=== PATIENT | female | born 1940 | race Caucasian/White ===

== ENCOUNTER 2019-02-08 18:45 | Inpatient (IN) | payer MEDICARE, MEDICAID ==
--- NOTE | 2019-02-08 19:31 | ED ---
Adult Trauma - HPI Summary HPI Summary: This patient is an 78 year old F brought to [facility] by EMS with a chief complaint of fall with unknown time of onset possibly last night 02/07/19. Symptoms aggravated by nothing. Symptoms alleviated by nothing. Per EMS, pt was found lying face down in hallway coming out of bathroom with her arms tucked underneath, pressure sores on her knees, incontinence, and open wounds on hands and her head. Per EMS, pt refused to come to hospital but was forced by daughter to come to ED due to inability to ambulate which pt reports was due to sitting for so long. Per EMS, pt denies SOB, CP. Per EMS, pt does not know how long she was on the floor because she slept for part of it. 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 Pt reports broke left arm and almost broke her left leg. Per EMS, police was sent for welfare check when pt was found. Pt reports her breathing is great. - History of Current Complaint Chief Complaint: EDFall Stated Complaint: INJURIES FROM FALL PER EMS Time Seen by Provider: 02/08/19 19:04 Hx Obtained From: Patient, EMS Mechanism of Injury: Fall Onset/Duration: Started Days Ago - 1, Still Present Current Severity: Moderate Pain Intensity: 8 Pain Scale Used: 0-10 Numeric Aggravating Factor(s): Nothing Alleviating Factor(s): Nothing Associated Signs & Symptoms: Positive: Other: - pressure sores on her knees, incontinence, broke left arm and almost broke her left leg, and open wounds on hands and her head; denies SOB, CP - Allergy/Home Medications Allergies/Adverse Reactions: Allergies Allergy/AdvReac Type Severity Reaction Status Date / Time Sulfa (Sulfonamide Allergy GI Upset Verified 02/08/19 23:14 Antibiotics) Home Medications: Home Medications LoraTADine TAB(NF) [Claritin 10 MG TAB(NF)] 10 mg PO DAILY 02/08/19 [History Confirmed 02/08/19] PMH/Surg Hx/FS Hx/Imm Hx Endocrine/Hematology History: Denies: Hx Diabetes Cardiovascular History: Reports: Hx Hypertension Sensory History: Reports: Hx Contacts or Glasses Opthamlomology History: Reports: Hx Contacts or Glasses - Surgical History Surgery Procedure, Year, and Place: none Infectious Disease History: No Infectious Disease History: Denies: Traveled Outside the [place] in Last 30 Days - Family History Known Family History: Positive: Cardiac Disease, Diabetes, Other - cancer - Social History Alcohol Use: None Hx Substance Use: No Substance Use Type: Reports: None Hx Tobacco Use: No Smoking Status (MU): Never Smoked Tobacco Review of Systems Negative: Chest Pain Negative: Shortness Of Breath Positive: incontinence Positive: Other - pressure sores on her knees, broke left arm and almost broke her left leg Positive: Other - open wounds on hands and her head All Other Systems Reviewed And Are Negative: Yes Physical Exam - Summary Physical Exam Summary: Constitutional: Well-developed, Well-nourished, Alert. (-) Distressed Skin: Neurovascularly intact distal to the injury HENT: edema on bridge of nose, periorbital edema and erythema bilaterally, abrasion on lateral side of face bilaterally, abrasion and erythema on chin, Face nontender with no step offs, no blood in oral mucosa, oral mucosa is moist Eyes: Conjunctiva normal Neck: Musculoskeletal ROM normal neck. (-) JVD, (-) Stridor, (-) Tracheal deviation Cardio: Rhythm regular, rate normal, Heart sounds normal; Intact distal pulses; The pedal pulses are 2+ and symmetric. Radial pulses are 2+ and symmetric. (-) Murmur Pulmonary/Chest wall: Effort normal. (-) Respiratory distress, (-) Wheezes, (-) Rales Abd: Soft, (-) tenderness, (-) Distension, (-) Guarding, (-) Rebound Musculoskeletal: no c-spine or spine tenderness, tenderness upon palpation to leg mid femur, pain with movement of the right leg at the hip, contusion over her left knee that is nontender, entire left leg is non-tender, Neurovascularly intact distal to the injury, Left leg is shortened compared to right but no pain or tenderness in the left hip or pain with movement of the leg and hip. Lymph: (-) Cervical adenopathy Neuro: no focal neurologic deficit with Cranial nerves II-XII are grossly intact Psych: Mood and affect Normal Triage Information Reviewed: Yes Vital Signs On Initial Exam: Initial Vitals Temp Pulse Resp BP Pulse Ox 97.0 F 82 16 0/0 94 02/08/19 18:56 02/08/19 18:56 02/08/19 18:56 02/08/19 18:56 02/08/19 18:56 Vital Signs Reviewed: Yes Procedures - Sedation Patient Received Moderate/Deep Sedation with Procedure: No Diagnostics - Vital Signs Vital Signs Temp Pulse Resp BP Pulse Ox 02/08/19 18:56 97.0 F 82 16 0/0 94 - Laboratory Result Diagrams: 02/09/19 01:28 02/09/19 01:28 Lab Statement: Any lab studies that have been ordered have been reviewed, and results considered in the medical decision making process. - Radiology Femur X-Ray Radiology Interpretation Completed By: ED Physician Summary of Radiographic Findings: Per ED Physician,. no acute process. Pending official report. Hand X-Ray Radiology Interpretation Completed By: ED Physician Summary of Radiographic Findings: Per ED Physician,. no acute process. Pending official report. Hip/Pelvis X-Ray Radiology Interpretation Completed By: ED Physician Summary of Radiographic Findings: Per ED Physician,. Right hip shows no acute process. Pelvis shows severe degenerate disease of the left hip vs fracture. Pending official report. Knee X-Ray Radiology Interpretation Completed By: ED Physician Summary of Radiographic Findings: Per ED Physician,. no acute process. Pending official report. Chest X-Ray Radiology Interpretation Completed By: ED Physician Summary of Radiographic Findings: Per ED Physician,. possible right basal infiltrate. Pending official report. - CT Maxillofacial CT CT Interpretation Completed By: Radiologist Summary of CT Findings: Per radiologist,. No acute facial fractures. ED physician has reviewed this imaging report. Brain CT CT Interpretation Completed By: Radiologist Summary of CT Findings: Per radiologist,. Large right parietal 6 cm calcified mass could represent a meningioma or low. grade intraparenchymal lesion. Further workup with MRI recommended. No acute intracranial hemorrhage. ED physician has reviewed this imaging report. - EKG 0 Cardiac Rate: NL - 92 BPM EKG Rhythm: Sinus Rhythm Summary of EKG Findings: EKG taken at 0 reveals normal sinus rhythm at 92 BPM with prolonged QT, T-waves are inverted from V2 through V6 consistent with wellens criteria, normal ND, normal QRS, normal axis, normal ST. - Additional Comments Diagnostic Additional Comments: Brain MRI and Cervical Spine CT has not yet been reported. Re-Evaluation - Re-Evaluation First Eval Re-Evaluation Time: 20:19 Second Eval Re-Evaluation Time: 22:12 Comment: Physician discusses admission with pt. Adult Trauma Course/Dx - Course Course Of Treatment: This patient is an 78 year old F brought to [facility] by EMS with a chief complaint of fall with unknown time of onset. Per EMS, pt was found on ground with her arms tucked underneath, pressure sores on her knees, incontinence, and open wounds on hands and her head. Per EMS, pt refused to come to hospital but was forced by daughter to come to ED due to inability to ambulate which pt reports was due to sitting for so long. Per EMS, pt denies SOB , CP. Pt reports broke left arm and almost broke her left leg. Physical Exam Findings reveals no abnormalities except for on bridge of nose, periorbital edema and erythema bilaterally, abrasion on lateral side of face bilaterally, abrasion and erythema on chin, Face nontender with no step offs, no blood in oral mucosa, oral mucosa is moist, no c-spine or spine tenderness, tenderness upon palpation to leg mid femur, pain with movement of the right leg at the hip , contusion over her left knee that is nontender, entire left leg is non-tender , Neurovascularly intact distal to the injury, abrasion on her right hand,. no focal neurologic deficit with Cranial nerves II-XII are grossly intact, Left leg is shortened compared to right but no pain or tenderness in the left hip or pain with movement of the leg and hip. Maxillofacial CT reveals No acute facial fractures. Brain CT reveals Large right parietal 6 cm calcified mass could represent a meningioma or low. grade intraparenchymal lesion. Further workup with MRI recommended. No acute intracranial hemorrhage. Femur X-Ray reveals no acute process. Hand X-Ray reveals no acute process. Hip/Pelvis X-Ray : Right hip shows no acute process. Pelvis shows severe degenerate disease of the left hip vs fracture. Knee X-Ray reveals no acute disease. Chest X-Ray reveals possible right basal infiltrate. EKG taken at 2040 reveals normal sinus rhythm at 92 BPM with prolonged QT, T-waves are inverted from V2 through V6 consistent with wellens criteria, normal ND, normal QRS, normal axis, normal ST. Brain MRI and Cervical Spine CT report not read at this time. Tests show no abnormalities except for WBC 23.5 H, RBC 5.28 H, Chloride 100 L, BUN 30 H, Bun/Creatinine Ratio 35.3 H, Glucose 122 H, Lactic Acid 3.2 H, AST 113 H, Total Creatine Kinase 2977 H, Troponin I 3.96 H. Urinalysis reveals no abnormalities except for Urine Protein 2+ (100 mg/dl) A, Urine Ketones 1+ A, Urine Blood 3+ A , Ur Leukocyte Esterase Trace A, Urine WBC 2+ (11-20/hpf) A, Urine RBC 2+ (6-10/ hpf) A, Ur Squamous Epith Cells Present A, Urine Bacteria 1+ A, Hyaline Casts Present A, Granular Casts Present A. Pt was given 15 ml Gadoteridol IV, 200 mls /hr piperacillin Sod/Tazobactam Sod 3.375 gm in Sodium Chloride, 1000 mls/hr saline. We discussed patient care with Dr. Flores, who recommends MRI and possible admission,. Dr. Perez, plaster die maker, who recommends no heparin at this time, and Dr. Wise, hospitalist, accepts patient for admission. Patient will be admitted with diagnosis of sepsis, brain mass, fall, multiple contusions , elevated troponin, and rhabdomyolysis. The patient is agreeable with this plan. - Diagnoses Provider Diagnoses: Sepsis, Brain mass, Fall, Multiple contusions, Elevated troponin, Rhabdomyolysis - Physician Notifications Discussed Care Of Patient With: Dia Flores Time Discussed With Above Provider: 20:47 Instructed by Provider To: Other - pt needs MRI, if any other symptoms then admission to hospital 0: Dr. Wise, hospitalist, accepts patient for admission. 2209: Dr. Perez, plaster die maker, no heparin at this time. Discharge ED - Sign-Out/Discharge Documenting (check all that apply): Patient Departure - admit - Discharge Plan Condition: Improved Disposition: ADMITTED TO [facility] - Billing Disposition and Condition Condition: IMPROVED Disposition: Admitted to [facility] - Attestation Statements Document Initiated by Scribe: Yes Documenting Scribe: Stacy Osman Provider For Whom Scribe is Documenting (Include Credential): Racquel Hernandez MD Scribe Attestation: Stacy Saravia, scribed for Racquel Barrios MD on 02/09/19 at 1027. Scribe Documentation Reviewed: Yes Provider Attestation: The documentation as recorded by the scribe, Stacy Osman accurately reflects the service I personally performed and the decisions made by me, Racquel Hernandez MD Status of Scribe Document: Viewed
[2019-02-08] MEDS ORDERED: Gadoteridol* (CONTRAST) 279.3 MG/ML 10 ML IV ONE (21:32)
[2019-02-08 21:34] LABS: Hematocrit 45 % (35-47); Hemoglobin 14.8 g/dL (12.0-16.0); Mean Corpuscular HGB Conc 33 g/dL (31-36); Mean Corpuscular Hemoglobin 28 pg (27-31); Mean Corpuscular Volume 85 fL (80-97); Mean Platelet Volume 8.3 fL (7.4-10.4); Platelet Count 209 10^3/uL (150-450); Red Blood Count 5.28 10^6 /uL (3.70-4.87); Red Cell Distribution Width 13 % (10-15); White Blood Count 23.5 10^3/uL (3.5-10.8)
[2019-02-08 21:40] LABS: INR 1.01 (0.82-1.09)
[2019-02-08 21:45] LABS: ALT 40 U/L (7-52); AST 113 U/L (13-39); Albumin 4.2 g/dL (3.2-5.2); Albumin/Globulin Ratio 1.4 (1-3); Alkaline Phosphatase 61 U/L (34-104); Anion Gap 11 mmol/L (2-11); BUN/Creatinine Ratio 35.3 (8-20); Blood Urea Nitrogen 30 mg/dL (6-24); CO2 Carbon Dioxide 29 mmol/L (22-32); Calcium 10.1 mg/dL (8.6-10.3); Chloride 100 mmol/L (101-111); EGFR African American 77.9 (>60); EGFR Non-African American 64.4 (>60); Globulin 2.9 g/dL (2-4); Glucose 122 mg/dL (70-100); Potassium 3.9 mmol/L (3.5-5.0); Sodium 140 mmol/L (135-145); Total Protein 7.1 g/dL (6.4-8.9)
[2019-02-08 21:49] LABS: Urine Appearance Cloudy; Urine Bacteria 1+ (Absent); Urine Bilirubin Negative (Negative); Urine Blood 3+ (Negative); Urine Color Yellow; Urine Glucose Negative (Negative); Urine Granular Casts Present (Absent); Urine Ketones 1+ (Negative); Urine Nitrite Negative (Negative); Urine Protein 2+(100 mg/dL) (Negative); Urine Red Blood Cell 2+(6-10/hpf) (Absent); Urine Specific Gravity 1.023 (1.010-1.030); Urine Squamous Epithelial Cell Present (Absent); Urine Urobilinogen Negative (Negative); Urine White Blood Cell 2+(11-20/hpf) (Absent)
[2019-02-08] MEDS ORDERED: NS 0.9% 1000 ML** 1,000 ML IV ONE ×3 (21:51→23:15)
[2019-02-08 21:52] LABS: Troponin I 3.96 ng/mL (<0.04)
[2019-02-08] MEDS ORDERED: Piperacillin/Tazobac ADVAN(*) 3.375 GM in NS 0.9% 100 ML* 100 ML IVPB ONE (21:52)
[2019-02-08] MEDS ORDERED: Vancomycin(*) 1,000 MG VIAL IVPB SCH (21:53)
[2019-02-08 21:54] LABS: Alcohol < 10 mg/dL (<10)
[2019-02-08] MEDS ORDERED: Vancomycin(*) 1,000 MG - ED ONCE IV ONE ×2 (22:00)
[2019-02-08 22:03] LABS: Creatine Kinase 2977 U/L (10-223)
[2019-02-08 22:30] LABS: ABS Lymphocytes 0.8 10^3/ul (1.0-4.8); ABS Monocytes 1.1 10^3/ul (0-0.8); ABS Neutrophils 21.6 10^3/ul (1.5-7.7); Lymphocyte % 3.2 %; Nucleated Red Blood Cells % 0.2
[2019-02-08] MEDS ORDERED: Azithromycin 500 mg/250 ml NS 500 MG/250 ML BAG IVPB ONE (22:37)
[2019-02-08] MEDS ORDERED: NS 0.9% 250 ML* 250 ML IV ONE (22:38)
--- NOTE | 2019-02-08 23:23 | HP ---
History of Present Illness - History of Present Illness Reason for Visit: fall History of Present Illness: 78 year old female with no known medical history was brought in by ambulance today after being found down. Pt normally calls her family every morning. When she didnt call today, family sent for police to check her home and found her on the floor. She does not recall exactly how long she has been on the floor. Per family, she posted a fb status yesterday evening and that was the last they have heard from her. 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 She said their symptoms are identical. She would experience severe headache with transient hemiplegia sometimes leading to a fall. Which is what happened last night. She fell forwards and hit her head on the floor. She has multiple bruises all over her body. She has no severe pain. She tried to get up on her own but couldnt. When EMT arrived and stood her up, it was reported that her ext was still limp and she couldnt hold herself. She diddnt want to come to the hospital but her family made her. So far, her work up shows significant leukocytosis, pos UA, possible aspiration PNA and a massive lesion in her brain. Lesion was further characterized as a meningioma and neurosurgery was called, nothing to do overnight. She also had significant bump in her troponin, cardiology was called, only trend the troponins for now. Right now patient says she feels fine, just tired. She is very engaging, non- toxic appearing. - Past Medical History CLOTHING CONSULTANT: Migraine Review of Systems - Measurements Intake and Output: Intake and Output Last 24 Hours 02/06/19 02/07/19 02/08/19 02/09/19 06:59 06:59 06:59 06:59 Weight 165 lb - Review of Systems Constitutional Symptoms: Positive: Fatigue, Unexplained Falls Dermatology: Positive: Other - bruises on face, knees, hands. HEENT: Positive: Normal Eyes: Positive: Normal Thyroid: Positive: Normal Pulmonary: Positive: Normal Cardiology: Positive: Normal Gastroenterology: Positive: Normal Musculoskeletal: Positive: Other - right knee pain Endocrinology: Positive: Normal Neurology: Positive: Migraines Psychiatry: Positive: Normal Objective Active Medications: Vancomycin HCl 1,000 mg/ (Sodium Chloride) 250 mls @ 166.667 mls/hr IV ED ONCE ONE Stop: 02/08/19 23:29 Last Admin: 02/08/19 23:11 Dose: 166.667 mls/hr Azithromycin (Zithromax 500 Mg/250 Ml) 500 mg in 250 mls @ 250 mls/hr IVPB ONCE ONE Stop: 02/08/19 23:36 Sodium Chloride (Ns 0.9% 1000 Ml) 1,000 mls @ 1,000 mls/hr IV ED ONCE ONE Stop: 02/08/19 23:37 Last Admin: 02/08/19 23:13 Dose: 1,000 mls/hr Sodium Chloride (Ns 0.9% 1000 Ml) 1,000 mls @ 125 mls/hr IV ONCE ONE Stop: 02/09/19 07:14 Vital Signs - 8 hr 02/08/19 02/08/19 02/08/19 18:56 19:09 22:07 Temperature 97.0 F Pulse Rate 82 99 84 Respiratory 16 Rate Blood Pressure 0/0 (mmHg) O2 Sat by Pulse 94 93 91 Oximetry 02/08/19 02/08/19 23:00 23:01 Temperature 99.1 F Pulse Rate 88 Respiratory Rate Blood Pressure (mmHg) O2 Sat by Pulse 93 Oximetry Eyes: PERRLA Ears/Nose/Mouth/Throat: Clear Oropharnyx, Mucous Membranes Moist Neck: NL Appearance and Movements; NL JVP, Trachea Midline, No Thyroid Enlargement, Masses Respiratory: Symmetrical Chest Expansion and Respiratory Effort, Clear to Auscultation, Clear to Percussion, Clear to Palpation Cardiovascular: NL Sounds; No Murmurs; No JVD Abdominal: NL Sounds; No Tenderness; No Distention Lymphatic: No Cervical Adenopathy Extremities: No Edema Neurological: Alert and Oriented x 3, NL Sensation, NL Muscle Strength and Tone - except for chronic weakness in left arm Result Diagrams: 02/08/19 21:15 02/08/19 21:15 Assess/Plan/Problems-Billing Assessment: - Patient Problems (1) Fall Current Visit: Yes Status: Acute Comment: CT head shows a mass. She is not in a lot pain so only a CT neck was done and a few XRs, so far no fractures. she said she has had prior incidences of mechanical fall following the migraine. And Her symptoms do sound like hemiplegic migraine and her daughter was formally diagnosed, so it may be familial Given her multiple falls, i thinks she needs neurology to look into this. MRI did show a mass which neurosurgery will be following. If this is familial hemiplegic migraine, she could be having seizures with them? PT/OT (2) Meningioma Current Visit: Yes Status: Acute Code(s): D32.9 - BENIGN NEOPLASM OF MENINGES, UNSPECIFIED SNOMED Code(s): 107772454 Comment: incidental large mass on imaging with midline shift neurosurgery was called, nothing to do overnight. (3) Elevated troponin Current Visit: Yes Status: Acute Code(s): R79.89 - OTHER SPECIFIED ABNORMAL FINDINGS OF BLOOD CHEMISTRY SNOMED Code(s): 129130148 Comment: Troponins elevated. No chest pain. EKG with nonspeficic abnormalities Ed spoke with cardiology. Just trend troponins for now Trops Q6H No family hx of heart disease. (4) Sepsis Current Visit: Yes Status: Acute Comment: Found down. She said she had a hemiplegic migraine episode which led to her fall but she was too weak to get up , maybe that is related to an infection UA is pos. WBC is significantly elevated and LA is high blood cultures, broad spectrum abx, fluids trend LA (5) Migraine Current Visit: Yes Status: Acute Code(s): G43.909 - MIGRAINE, UNSP, NOT INTRACTABLE, WITHOUT STATUS MIGRAINOSUS SNOMED Code(s): 95694073 Comment: not formally diagnosed, though it does sound familial now that an incidental massive lesion was found in her brain, primary team to consider consulting neurology (6) DVT prophylaxis Current Visit: Yes Status: Acute Code(s): Z29.9 - ENCOUNTER FOR PROPHYLACTIC MEASURES, UNSPECIFIED SNOMED Code(s): 822447998 (7) Full code status Current Visit: Yes Status: Acute Code(s): Z78.9 - OTHER SPECIFIED HEALTH STATUS SNOMED Code(s): 289447267
[2019-02-08] MEDS ORDERED: Zosyn per Pharmacy* NOTE FOLLOW UP SCH (23:45)
[2019-02-09 01:34] LABS: ABS Basophils 0.1 10^3/ul (0-0.2); ABS Lymphocytes 0.7 10^3/ul (1.0-4.8); ABS Monocytes 0.6 10^3/ul (0-0.8); ABS Neutrophils 18.6 10^3/ul (1.5-7.7); Hematocrit 41 % (35-47); Hemoglobin 13.7 g/dL (12.0-16.0); Lymphocyte % 3.4 %; Mean Corpuscular HGB Conc 33 g/dL (31-36); Mean Corpuscular Hemoglobin 28 pg (27-31); Mean Corpuscular Volume 85 fL (80-97); Mean Platelet Volume 8.1 fL (7.4-10.4); Platelet Count 186 10^3/uL (150-450); Red Blood Count 4.88 10^6 /uL (3.70-4.87); Red Cell Distribution Width 13 % (10-15)
[2019-02-09 01:51] LABS: Anion Gap 8 mmol/L (2-11); BUN/Creatinine Ratio 35.4 (8-20); Blood Urea Nitrogen 28 mg/dL (6-24); CO2 Carbon Dioxide 27 mmol/L (22-32); Calcium 8.8 mg/dL (8.6-10.3); Chloride 105 mmol/L (101-111); Cholesterol 151 mg/dL; EGFR African American 84.7 (>60); Glucose 171 mg/dL (70-100); HDL Cholesterol 51.7 mg/dL; LDL Cholesterol 84 mg/dL; Potassium 3.4 mmol/L (3.5-5.0); Sodium 140 mmol/L (135-145); Triglycerides 79 mg/dL
[2019-02-09 01:56] LABS: Troponin I 4.43 ng/mL (<0.04)
[2019-02-09 02:27] LABS: TSH (Thyroid Stimulating Horm) 0.74 mcIU/mL (0.34-5.60)
[2019-02-09] MEDS ORDERED: ZOSYN 3.375 GM Q8H per EXTENDED INFUSION IVPB SCH ×2 (02:30)
[2019-02-09] MEDS ORDERED: fentaNYL* 50 MCG/ML 2 ML VIAL (100 MCG VIAL) IV ONE (03:51)
[2019-02-09 05:50] LABS: Troponin I 3.98 ng/mL (<0.04)
[2019-02-09] MEDS ORDERED: Piperacillin/Tazobac ADVAN(*) 3.375 GM in NS 0.9% 100 ML* 100 ML IVPB ONE (07:00)
--- NOTE | 2019-02-09 07:44 | PN ---
Subjective Date of Service: 02/09/19 Interval History: HD 2 on 02/09 78 Y/o F with history of Migraine presented after fall and was found lying down on floor with weakness. Found to have multiple bruises all over the body, leucocytosis, abnormal urinalysis, and mass on her right parietal brain possibly Meningioma. Vitals- stable Has left knee pain denies chest pain, dizziness and SOB says needs some good Objective Active Medications: Vancomycin HCl 750 mg/ Sodium (Chloride) 250 mls @ 166.667 mls/hr IVPB Q12H SHANTEL ; Protocol Piperacillin Sod/Tazobactam (Sod 3.375 gm/ Sodium Chloride) 100 mls @ 25 mls/ hr IVPB Q8H SHANTEL Last Admin: 02/09/19 03:27 Dose: 25 mls/hr Pharmacy Consult (Zosyn Per Pharmacy*) 1 note FOLLOW UP .ZOSYN PER PHARMACY [facility] Vital Signs - 8 hr 02/08/19 02/08/19 02/09/19 23:47 23:49 00:42 Temperature 99.1 F 97.8 F Pulse Rate 99 94 99 Respiratory 19 18 Rate Blood Pressure 144/78 144/78 140/61 (mmHg) O2 Sat by Pulse 94 94 94 Oximetry 02/09/19 03:47 Temperature 98.3 F Pulse Rate 89 Respiratory 18 Rate Blood Pressure 137/56 (mmHg) O2 Sat by Pulse 94 Oximetry Oxygen Devices in Use Now: None Exam: Patient is sitting on abed with no acute distress HEENT- Bruise on both cheeks Lungs- clear with no added sounds Heart- S1/S2 heard with holosystolic murmur on upper sternal border Abdomen: soft, nondistended and nontender. Normal BS heard Extremities: Bruises on both upper and lower extremities. Distal pulses palpable Neuro: Alert, oriented. Motor strength 5/5 on right extremity and 4/5 on left extremity. decreased sensation on left side. CN intact. Result Diagrams: 02/09/19 17:32 02/09/19 17:32 Assess/Plan/Problems-Billing Assessment: 78 Y/o F with history of Migraine presented after fall and was found lying down on floor with weakness. Found to have multiple bruises all over the body, leucocytosis, elevated creatinine kinase and lactic acid and mass on her right parafalcine brain possibly Meningioma adn NSTEMI. - Patient Problems (1) Fall Current Visit: Yes Status: Acute Comment: -Pt was falling more often for last 1 year; with more shuffling gait. - She tripped 2 days ago and fell down and hit her face and was on floor for 24 hours -She denies chest pain, palpitation and light headedness. - could be multifactorial- weakness from brain mass, syncope or just mechanical fall -No fracture on Xray -Ct/MRI shows right parafalcine brain mass with midline shift possibly meningioma -PT ordered (2) NSTEMI (non-ST elevated myocardial infarction) Current Visit: Yes Status: Acute Code(s): I21.4 - NON-ST ELEVATION (NSTEMI) MYOCARDIAL INFARCTION SNOMED Code(s): 96212077 Comment: -Asymptomatic -has elevated troponin with ECG chowing T inversion on anterior leads -Echo shows focal wall motion abnormalities with EF of 40-45% with severe . -Cardio following -received loading of plavix; denied aspirin -no statin because of elevated CK - Cardiac cath tomorrow or on thursday. -trend troponin (3) Sepsis Current Visit: Yes Status: Acute Comment: -meet SIRS criteria with elevted WBC and tachy; suspected source urine; although denies symptom -elevated lactic acid- pt doesnot look septic- no e/o hypoperfusion -Abnormal urinalysis -CXR shows mild infiltrates on right middle lobe. -received bolus IVF; now on maintenance fluid- her lactic acidodsis should be decreasing by now but is still high; suspect Type B lactic acidosis - On ceftriaxone and azithro which will cover both UTI and Pneumonia -pending urine culture and blood culture (4) Aortic valve stenosis Current Visit: Yes Status: Acute Code(s): I35.0 - NONRHEUMATIC AORTIC (VALVE ) STENOSIS SNOMED Code(s): 55805278 Comment: -severe AV stenosis -Echo done -will need TAVR or open surgery -Cardio following (5) Rhabdomyolysis Current Visit: Yes Status: Acute Code(s): M62.82 - RHABDOMYOLYSIS SNOMED Code(s): 546386175 Comment: - on floor for 24 hours -CK of 2977 -Creatinine is normal. -On IVF -we will recheck CK (6) Meningioma Current Visit: Yes Status: Acute Code(s): D32.9 - BENIGN NEOPLASM OF MENINGES, UNSPECIFIED SNOMED Code(s): 885264332 Comment: -CT/MRI shows mass on right parafalcine region with midline shift of 5 mm possibly meningioma - Neurosurgery consulted - we will see patient tomorrow. (7) DVT prophylaxis Current Visit: Yes Status: Acute Code(s): Z29.9 - ENCOUNTER FOR PROPHYLACTIC MEASURES, UNSPECIFIED SNOMED Code(s): 722836939 Comment: -On heparin (8) Full code status Current Visit: Yes Status: Acute Code(s): Z78.9 - OTHER SPECIFIED HEALTH STATUS SNOMED Code(s): 661711510 Status and Disposition: Inpatient Cardio and neurosurgery following Attending: Deepa Yu Attestation Documenting Resident: Natasha Ma Supervising Physician: Deepa Yu Attending/Supervising Physician Comment: Agree with resident note. Attending A&P 78F PMH HTN, migraines (w reported hemiplegia), who presented after being found down in setting of fall, found to have sepsis possibly 2/2 to PNA, rhabdomyolysis, L sided weakness and new R parietal meningioma with mass effect , severe and NSTEMI, persistent elevated lactic acid with associated AGMA. Multiple problems but overall well appearing today. Plan by problem: #Sepsis: s/p sepsis bundle, on CTX, Azithro for rpesumed pulm source, watch culture data --Elevated lactic acid unclear, no sign of shock or hypoperfusion, possibly tumor related, possibly type 2 elevated lactic acidosis. #NSTEMI: Hold heparin gtt in setting of new parietal tumor, cardiology following , plan for cath in prep for TAVR #Severe : Will need transfer when more stable and can be evaluated with risk/ benefits from CT Surgery in conjunction with new meningioma #Mengioma: Atypical? Neurosurgey following and to leave note 02/10, heart condition takes precedence in terms of operation #Rhabdo: Mild, traumatic, on IVF, trend CK and Cr to ensure heading in right direction #DVT PPX:Heparin Full Code Attestation: This service has been performed in part by a resident under the direction of a teaching physician.I, Deepa Yu, performed the service, or was physically present during the critical, or greenberg portions of the service, furnished by the resident. I participated in the management of the patient.
[2019-02-09] MEDS ORDERED: Vancomycin per Pharmacy* NOTE FOLLOW UP PRN (08:06)
[2019-02-09] MEDS ORDERED: Heparin VIAL(*) 5000 UNITS/ML VIAL (FIVE THOUSAND) SUBCUT SCH (09:00)
[2019-02-09] MEDS ORDERED: NS 0.9% 1000 ML** 1,000 ML IV SCH (09:45)
--- NOTE | 2019-02-09 10:27 | CONS ---
CONSULTATION REPORT: DATE OF CONSULT: 02/09/19 ATTENDING PHYSICIAN: Dr. Shayy Yusuf, Cardiology* (dictated by Angelika Chavarria NP). REASON FOR CONSULTATION: Troponin elevation. PRIMARY PHYSICIAN: None. HISTORY OF PRESENT ILLNESS: The patient states she has not been a primary physician since 2002. At that time, she was seen by Raf Thornton. The patient states that she does not have any diagnosed medical problems.. She has been in her usual state of health. For the past 2 years she has been noticing increased tremors, leg weakness resulting in mechanical falls. 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 She did not have a Life Alert on her nor did she have a phone. Apparently, she fell asleep in that position and was not found until nearly 24 hours later after her daughter called the police to do a safety check. She was brought into [facility] Emergency Room at 7:25 p.m. on 02/08/19 approximately 24 hours after the initial fall. The patient denies loss of consciousness. She apparently was found face down at that time. It appears that she was confused because she was referencing fracturing her leg. She underwent extensive evaluation while in the emergency department. Brain CT was abnormal with report of a large right parietal 6 cm calcified mass. She underwent a brain MRI, which revealed posterior right parafalcine meningioma measuring 5.3 x 4.5 x 5.2 cm with mild vasogenic edema midline shift to the left measuring 5 mm. Neurosurgery was consulted. Blood work revealed troponin elevation, troponin peaked on 02/09/19 at 4.3. Total CK was 2977. AST was 113. Her initial lactic acid was elevated at 3.2, white count 20. ECG revealed sinus rhythm rate 92 with anterolateral T-wave depression. Unfortunately, I do not have an ECG to compare to given patient has not followed up with her primary care physician since 2002. She was admitted to [address] [place] [address]. Decision was made to trend isoenzymes, which again have peaked. She denies ever experiencing chest pain, syncope, dizziness or palpitations. She states otherwise she has been in her usual state of health. Last ischemic evaluation, none. Echocardiogram pending. PAST MEDICAL HISTORY: 1. Reported hypertension in the distant past. 2. Osteoarthritis. 3. Aortic valve murmur on exam. Echo pending PAST SURGICAL HISTORY: Includes multiple D and C's. ALLERGIES: Includes: 1. PORK, which causes migraine. 2. SULFA, flank pain. 3. TOMATOES, migraine. 4. SOYA, migraine. 5. ASPIRIN, dizziness and tingling. FAMILY HISTORY: Her mother at 58 due to complications from a myocardial infarction. Father at 75 due to complications from stomach cancer. Her sister Renae at age 58 due to myocardial infarction. SOCIAL HISTORY: The patient lives at home alone. Her daughter Keren Carrillo is healthcare proxy. Denies ever using tobacco products. Denies drinking or illicit drug use. She is listed as a full code. REVIEW OF SYSTEMS: All systems have been reviewed and otherwise negative except as mentioned in the HPI. PHYSICAL EXAM: Vital signs: Temperature 98.2, pulse 89, respirations 18, oxygenation 96% on room air, blood pressure 121/59. General: The patient is sitting upright in bed with daughter Aura at the bedside. Pleasant, alert and oriented, appears in no apparent distress, cooperative with the examination. HEENT: The patient has abrasions noted on bilateral cheeks with slight ecchymosis noted near the periorbital region. Tongue is midline. Neck: Supple, trachea midline. No JVD. No carotid bruits. Cardiac: Normal S1, S2. Regular rate and rhythm. There is a grade 2/6 systolic aortic murmur. There is a grade 4/6 mitral valve murmur, no gallop or rub. Lungs: Auscultated posteriorly, no evidence of adventitious breath sounds. Respirations is nonlabored, rate at 20. /GI: Abdomen is nontender, normoactive bowel sounds x4. Extremities: No pedal edema, no clubbing, no cyanosis. Peripheral Vascular: 3+ brachial pulses palpated bilaterally and symmetrically, 2+ dorsalis pedis pulses palpated bilaterally and symmetrically. DIAGNOSTIC STUDIES/LAB DATA: White count is 20, hemoglobin 13.7, hematocrit 41 , platelets 186. Sodium 140, potassium 3.4, chloride 105, carbon dioxide 27, BUN 28, creatinine 0.79, troponin peaked at 4.43 on 02/09/19. Total CK was 2977 , AST elevated at 113, LDL 84. ECG reviewed from 02/09/19, sinus rhythm, rate 81 with T wave inversion noted in V2, V3, V4, V5 and lead I and aVL. Telemetry reviewed, sinus tachycardia, rate 80 to 110. Echocardiogram pending. Brain MRI as mentioned above. ASSESSMENT AND PLAN: 1. Non-ST elevation myocardial infarction. Troponin peaked at 4.43 with presumed new anterolateral T-wave inversion. Unfortunately, I do not have an ECG to compare to. She has not seen a primary physician since 2002. Risk factors include positive family history, age, and reported history of hypertension. She denies ever experiencing chest pain. Troponin is trending down. Await echocardiogram to rule out focal wall motion abnormality. She reports sensitivity to ASPIRIN which apparently caused dizziness and tingling. Decision was made not to initiate IV heparin due to abnormal brain MRI. We will follow closely. Possibly related to rhabdomyolysis. 2. Rhabdomyolysis. The patient had a mechanical fall reported at 6:30 p.m. on 02/07/19. According to the patient and her daughter Aura whom I spoke with, she was lying on the ground face down for approximately 24 hours before being found. She has notable facial abrasions and abrasion on her knees. CK was elevated at 2977, AST 113. She has been receiving IV fluids. We would not initiate statin therapy at this time. 3. Abnormal brain MRI with 5.3 x 4.5 x 5.2 cm posterior right parafalcine meningioma with midline shift to left measuring 5 mm, deferred to primary team and Neurosurgery. 4. Abnormal cardiovascular exam. The patient has positive aortic stenotic murmur and mitral valve murmur, we will await echocardiogram and follow closely. 5. Disposition, pending course. Dr. Shayy Yusuf has seen and examined the patient who agrees with the above assessment and plan. Thank you for this kind consultation. If you have any future questions or concerns, please do not hesitate to contact our practice. ANGELIKA CHAVARRIA NP [id number]/[facility] #: [id number]/[facility] #: [id number] [facility] CENTERScarlett
[2019-02-09] MEDS: cefTRIAXone(*) 1 GM in NS 0.9% 50 ML* 50 ML IVPB SCH (10:39)
[2019-02-09] MEDS: Azithromycin IV(*) 250 MG in NS 0.9% 250 ML* 250 ML IVPB SCH (10:40)
[2019-02-09] MEDS: Aspirin TAB* 325 MG PO ONE ×2 (10:40→11:07)
[2019-02-09] MEDS ORDERED: Vancomycin(*) 1,000 MG in NS 0.9% 250 ML* 250 ML IVPB SCH (11:00)
[2019-02-09 11:12] LABS: Troponin I 2.42 ng/mL (<0.04)
--- NOTE | 2019-02-09 11:16 | CONS ---
CARDIOLOGY CONSULTATION NOTE: ADDENDUM: ATTENDING PHYSICIAN: Shayy Yusuf MD. PHYSICAL EXAM: Vital signs: Temperature 98.2, pulse 89, respirations 18, oxygenation 96% on room ai r, blood pressure 121/59. General: The patient is sitting upright in bed with daughter Aura at th e bedside. Pleasant, alert and oriented, appears in no apparent distress, cooperative with the [facility]. HEENT: The patient has abrasions noted on bilateral cheeks with slight ecchymosis noted near the periorbital region. Tongue is midline. Neck: Supple, trachea midline. No JVD. No carotid br uits. Cardiac: Normal S1, S2. Regular rate and rhythm. There is a grade 2/6 systolic aortic murmu r. There is a grade 4/6 mitral valve murmur, no gallop or rub. Lungs: Auscultated posteriorly, no evidence of adventitious breath sounds. Respirations is nonlabored, rate at 20. /GI: Abdomen is n ontender, normoactive bowel sounds x4. Extremities: No pedal edema, no clubbing, no cyanosis. Raina pheral Vascular: 3+ brachial pulses palpated bilaterally and symmetrically, 2+ dorsalis pedis pulses palpated bilaterally and symmetrically. DIAGNOSTIC STUDIES/LAB DATA: White count is 20, hemoglobin 13.7, hematocrit 41, platelets 186. Sodi um 140, potassium 3.4, chloride 105, carbon dioxide 27, BUN 28, creatinine 0.79, troponin peaked at 4 .43 on 02/09/19. Total CK was 2977, AST elevated at 113, LDL 84. ECG reviewed from 02/09/19, sinus rhythm, rate 81 with T wave inversion noted in V2, V3, V4, V5 and l ead I and aVL. Telemetry reviewed, sinus tachycardia, rate 80 to 110. Echocardiogram pending. Brain MRI as mentioned above. ASSESSMENT AND PLAN: 1. Non-ST elevation myocardial infarction. Troponin peaked at 4.43 with presumed new anterolateral T-wave inversion. Unfortunately, I do not have an ECG to compare to. She has not seen a primary y sician since 2002. Risk factors include positive family history, age, and reported history of hypert ension. She denies ever experiencing chest pain. Troponin is trending down. Await echocardiogram t o rule out focal wall motion abnormality. She reports sensitivity to ASPIRIN which apparently caused dizziness and tingling. Decision was made not to initiate IV heparin due to abnormal brain MRI. We will follow closely. Possibly related to rhabdomyolysis. 2. Rhabdomyolysis. The patient had a mechanical fall reported at 6:30 p.m. on 02/07/19. According to the patient and her daughter Aura whom I spoke with, she was lying on the ground face down for a pproximately 24 hours before being found. She has notable facial abrasions and abrasion on her knees. CK was elevated at 2977, AST 113. She has been receiving IV fluids. We would not initiate statin therapy at this time. 3. Abnormal brain MRI with 5.3 x 4.5 x 5.2 cm posterior right parafalcine meningioma with midline sh ift to left measuring 5 mm, deferred to primary team and Neurosurgery. 4. Abnormal cardiovascular exam. The patient has positive aortic stenotic murmur and mitral valve m urmur, we will await echocardiogram and follow closely. 5. Disposition, pending course. Dr. Shayy Yusuf has seen and examined the patient who agrees with the above assessment and plan. Thank you for this kind consultation. If you have any future questions or concerns, please do not he sitate to contact our practice. RAQUEL CORTES NP [id number]/[facility] #: [id number]
--- NOTE | 2019-02-09 11:38 | ECHO ---
*[facility]* [place] [address] Fax #: [phone] Transthoracic Echocardiogram Patient: Cami Noriega : 1940 Study Date: 02/09/2019 Age: 78 Gender: F HR: 94 bpm Height: 65 in /165.1 cm BSA: 1.78 m^2 Weight: 155.7 lb /70.8 kg BMI: 26 kg/m^2 *Systems Support Officer: * Evita Ortega RDCS RN *Referring Physician: * Angelika Chavarria *Reading Physician: * Shayy Yusuf MD Indications: Abnormal EKG. History: Migraines. Brain mass found on CT. Conclusions Summary: - Left ventricle: The cavity size is normal. Wall thickness is mildly to moderately increased. Systolic function is mildly to moderately reduced. The estimated ejection fraction is 40-45% with focal wall motion abnormalities, see text. Doppler parameters are consistent with elevated ventricular end-diastolic filling pressure. - Right ventricle: Systolic function is normal. - Mitral valve: There is mild to moderate regurgitation, directed posteriorly and toward the free wall. - Aortic valve: The findings are consistent with severe stenosis. The peak systolic velocity is 3.2 m/sec. The mean systolic gradient is 30.0 mm Hg. The LVOT to aortic valve VTI ratio is 0.22. The valve area by the velocity-time integral method is 0.69 cm^2. The valve area by the peak velocity method is 0.78 cm^2. - Tricuspid valve: There is mild regurgitation. - Aorta: The ascending aorta internal dimension in the A-P direction, maximal systolic dimension is 3.5 cm. - Ascending aorta: The ascending aorta is mildly dilated. - Pulmonary arteries: Systolic pressure is moderately increased, estimated to be 46 mm Hg. - No prior echocardiogram to compare. Study data: Transthoracic echocardiogram. Procedure: Transthoracic echocardiography was performed. Image quality was fair. The patient refused the use of Definity for image enhancement. Complete 2D, spectral Doppler, and color flow Doppler. Location: Bedside. Patient status: Inpatient. Patient room number: 438. Rhythm: Normal sinus rhythm with PAC's. Findings Left ventricle: The cavity size is normal. Wall thickness is mildly to moderately increased. Systolic function is mildly to moderately reduced. The estimated ejection fraction is 40-45%. Regional wall motion abnormalities: Hypokinesis noted mid lateral and posterior wright, anterior wall appears hypokinetic. Best systolic function seen in the septum, base of the lateral wall, very apex. Doppler parameters are consistent with abnormal left ventricular relaxation (grade 1 diastolic dysfunction). Doppler parameters are consistent with elevated ventricular end-diastolic filling pressure. Right ventricle: The cavity size is normal. Wall thickness is mildly increased at 0.7 cm. Systolic function is normal. Left atrium: The atrium is mildly to moderately dilated. Right atrium: The atrium is normal in size. Mitral valve: The Mitral valve annulus appears calcified. The leaflets are mildly thickened. There is no evidence of stenosis. There is mild to moderate regurgitation, directed posteriorly and toward the free wall. Aortic valve: The valve is trileaflet. The leaflets are moderately thickened with decreased excursion. The findings are consistent with severe stenosis. There is no significant regurgitation. Tricuspid valve: The valve is structurally normal. There is no evidence of stenosis. There is mild regurgitation. Pulmonic valve: The valve is structurally normal. There is no evidence of stenosis. There is physiologic regurgitation. Aorta: Aortic root: The aortic root is not dilated. Ascending aorta: The ascending aorta is mildly dilated. Aortic arch: The aortic arch is not dilated. Pericardium: There is no pericardial effusion. Pulmonary arteries: The main pulmonary artery is normal-sized. Systolic pressure is moderately increased, estimated to be 46 mm Hg. Systemic veins: Inferior vena cava: The vessel is normal in size. There is (< 50%) respiratory change in the IVC dimension. Measurements Left ventricle Value Ref Aortic valve Value Ref GALE, LAX 4.7 cm 3.8 - 5.2 Vaughn diam, ED 2.3 cm ----- ESD, LAX (H) 3.7 cm 2.2 - 3.5 Peak v, S 3.2 m/sec ----- FS, LAX (L) 21 % 27 - 45 VTI, S 70.4 cm ----- PW, ED (H) 1.3 cm 0.6 - 0.9 Mean grad, S 30.0 mm Hg ----- IVS/PW, ED 1.06 Peak grad, S 42.0 mm Hg ----- E', lat vaughn, TDI (L) 4.4 cm/sec >=10.0 LVOT/AV, VTI ratio 0.22 --- -- E/e', lat vaughn, 20 DAVID, VTI 0.69 cm^2 ----- TDI DAVID, Vmax 0.78 cm^2 ----- E', med vaughn, TDI (L) 5.4 cm/sec >=7.0 E/e', med vaughn, 16 Mitral valve Value Ref TDI Peak E 0.88 m/sec ----- E', avg, TDI 4.9 cm/sec Peak A 0.88 m/sec ----- E/e', avg, TDI (H) 18 <=14 Decel time 229 ms --- -- Peak grad, D 3.1 mm Hg ----- LVOT Value Ref Peak E/A ratio 1 ----- Diam, S 2.00 cm Area 3.1 cm^2 Pulmonic valve Value Ref Peak rosas, S 0.79 m/sec Peak v, S 0.78 m/sec ----- VTI, S 15.5 cm Peak grad, S 2.0 mm Hg ----- Mean grad, S 1 mm Hg SV 49 ml Tricuspid valve Value Ref SV/bsa 28 ml/m^2 TR peak v (H) 3.1 m/sec <=2.8 Peak RV-RA grad, S 38 mm Hg ----- Ventricular septum Value Ref Max TR rosas 3.1 m/sec ----- IVS, ED (H) 1.3 cm 0.6 - 0.9 Aortic root Value Ref Right ventricle Value Ref Root diam 3.1 cm <4.0 GALE, LAX 2.7 cm GALE minor ax, A4C (H) 3.6 cm 1.9 - 3.5 Ascending aorta Value Ref mid AAo AP diam, S 3.5 cm ----- Pressure, S 46 mm Hg Decending aorta Value Ref Left atrium Value Ref Edson peak rosas 0.37 m/sec ----- AP dim, ES (H) 4.40 cm 2.70 - 3.80 Pulmonary artery Value Ref ML dim, A4C 4.2 cm Pressure, S 46.0 mm Hg ----- SI dim, A4C 4.5 cm Vol/bsa, ES, 1-p 29 ml/m^2 11 - 40 Inferior vena cava Value Ref A4C Diam 1.7 cm ----- Vol/bsa, ES, A/L (H) 40 ml/m^2 16 - 34 Right atrium Value Ref ML dim, ES, A4C 3.6 cm 2.6 - 4.4 SI dim, ES, A4C 4.4 cm 3.4 - 5.3 Estimated RAP 8 mm Hg Legend: (L) and (H) adán values outside specified reference range. Prepared and electronically signed by Shayy Yusuf MD 02/09/2019 11:38
[2019-02-09] MEDS ORDERED: Clopidogrel TAB* 300 MG PO ONE (11:39)
[2019-02-09] MEDS: Acetaminophen TAB* 325 MG PO PRN ×2 (12:16→19:44)
[2019-02-09] MEDS: Heparin VIAL(*) 5000 UNITS/ML VIAL (FIVE THOUSAND) SUBCUT SCH ×2 (14:17→21:33)
--- NOTE | 2019-02-09 16:40 | PN ---
Cardiology Progress Note Date of Service: 02/09/19 - CC: s/p fall see full consult noted from Angelika Chavarria HEALTH AND SAFETY REPRESENTATIVE Pt reports mechanical fall. Echo shows wall motion changes, severe . 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 [employer] Trops elevated. Presumed meningioma seen on CT head, recent GOMEZ's. Vital Signs - 12 hr Temp Pulse Resp BP Pulse Ox 02/09/19 11:15 98.3 F 95 20 106/66 95 02/09/19 08:00 20 02/09/19 07:15 98.2 F 101 20 121/59 96 Clear lungs. Distant HS USB, late peaking 1-2/6 SM USB, very soft S2 Loud SM apex Bruising of face noted post fall. Good radial pulses. Laboratory Results - last 24 hr 02/08/19 02/08/19 02/08/19 21:05 21:15 21:15 WBC 23.5 H RBC 5.28 H Hgb 14.8 Hct 45 MCV 85 MCH 28 MCHC 33 RDW 13 Plt Count 209 MPV 8.3 Neut % (Auto) 91.9 Lymph % (Auto) 3.2 Gulf % (Auto) 4.7 Eos % (Auto) 0.0 Baso % (Auto) 0.2 Absolute Neuts (auto) 21.6 H Absolute Lymphs (auto) 0.8 L Absolute Monos (auto) 1.1 H Absolute Eos (auto) 0.0 Absolute Basos (auto) 0.0 Absolute Nucleated RBC 0.0 Nucleated RBC % 0.2 INR (Anticoag Therapy) 1.01 Sodium Potassium Chloride Carbon Dioxide Anion Gap BUN Creatinine Est GFR ( Amer) Est GFR (Non-Af Amer) BUN/Creatinine Ratio Glucose Lactic Acid Calcium Total Bilirubin AST ALT Alkaline Phosphatase Total Creatine Kinase Troponin I Total Protein Albumin Globulin Albumin/Globulin Ratio Triglycerides Cholesterol LDL Cholesterol HDL Cholesterol TSH Urine Color Yellow Urine Appearance Cloudy Urine pH 5.0 Ur Specific [place] 1.023 Urine Protein 2+(100 mg/dl) A Urine Ketones 1+ A Urine Blood 3+ A Urine Nitrate Negative Urine Bilirubin Negative Urine Urobilinogen Negative Ur Leukocyte Esterase Trace A Urine WBC (Auto) 2+(11-20/hpf) A Urine RBC (Auto) 2+(6-10/hpf) A Ur Squamous Epith Cells Present A Urine Bacteria 1+ A Hyaline Casts Present A Granular Casts Present A Urine Glucose Negative Serum Alcohol 02/08/19 02/08/19 02/09/19 21:15 21:15 01:28 WBC RBC Hgb Hct MCV MCH MCHC RDW Plt Count MPV Neut % (Auto) Lymph % (Auto) Gulf % (Auto) Eos % (Auto) Baso % (Auto) Absolute Neuts (auto) Absolute Lymphs (auto) Absolute Monos (auto) Absolute Eos (auto) Absolute Basos (auto) Absolute Nucleated RBC Nucleated RBC % INR (Anticoag Therapy) Sodium 140 140 Potassium 3.9 3.4 L Chloride 100 L 105 Carbon Dioxide 29 27 Anion Gap 11 8 BUN 30 H 28 H Creatinine 0.85 0.79 Est GFR ( Amer) 77.9 84.7 Est GFR (Non-Af Amer) 64.4 70.0 BUN/Creatinine Ratio 35.3 H 35.4 H Glucose 122 H 171 H Lactic Acid 3.2 H* Calcium 10.1 8.8 Total Bilirubin 0.80 AST 113 H ALT 40 Alkaline Phosphatase 61 Total Creatine Kinase 2977 H Troponin I 3.96 H* 4.43 H* Total Protein 7.1 Albumin 4.2 Globulin 2.9 Albumin/Globulin Ratio 1.4 Triglycerides 79 Cholesterol 151 LDL Cholesterol 84 HDL Cholesterol 51.7 TSH 0.74 Urine Color Urine Appearance Urine pH Ur Specific [place] Urine Protein Urine Ketones Urine Blood Urine Nitrate Urine Bilirubin Urine Urobilinogen Ur Leukocyte Esterase Urine WBC (Auto) Urine RBC (Auto) Ur Squamous Epith Cells Urine Bacteria Hyaline Casts Granular Casts Urine Glucose Serum Alcohol < 10 02/09/19 02/09/19 02/09/19 01:28 02:14 05:17 WBC 20.0 H RBC 4.88 H Hgb 13.7 Hct 41 MCV 85 MCH 28 MCHC 33 RDW 13 Plt Count 186 MPV 8.1 Neut % (Auto) 93.1 Lymph % (Auto) 3.4 Gulf % (Auto) 3.2 Eos % (Auto) 0.0 Baso % (Auto) 0.3 Absolute Neuts (auto) 18.6 H Absolute Lymphs (auto) 0.7 L Absolute Monos (auto) 0.6 Absolute Eos (auto) 0.0 Absolute Basos (auto) 0.1 Absolute Nucleated RBC 0.0 Nucleated RBC % 0.0 INR (Anticoag Therapy) Sodium Potassium Chloride Carbon Dioxide Anion Gap BUN Creatinine Est GFR ( Amer) Est GFR (Non-Af Amer) BUN/Creatinine Ratio Glucose Lactic Acid 1.7 Calcium Total Bilirubin AST ALT Alkaline Phosphatase Total Creatine Kinase Troponin I 3.98 H* Total Protein Albumin Globulin Albumin/Globulin Ratio Triglycerides Cholesterol LDL Cholesterol HDL Cholesterol TSH Urine Color Urine Appearance Urine pH Ur Specific [place] Urine Protein Urine Ketones Urine Blood Urine Nitrate Urine Bilirubin Urine Urobilinogen Ur Leukocyte Esterase Urine WBC (Auto) Urine RBC (Auto) Ur Squamous Epith Cells Urine Bacteria Hyaline Casts Granular Casts Urine Glucose Serum Alcohol 02/09/19 02/09/19 02/09/19 08:11 10:42 13:33 WBC RBC Hgb Hct MCV MCH MCHC RDW Plt Count MPV Neut % (Auto) Lymph % (Auto) Gulf % (Auto) Eos % (Auto) Baso % (Auto) Absolute Neuts (auto) Absolute Lymphs (auto) Absolute Monos (auto) Absolute Eos (auto) Absolute Basos (auto) Absolute Nucleated RBC Nucleated RBC % INR (Anticoag Therapy) Sodium Potassium Chloride Carbon Dioxide Anion Gap BUN Creatinine Est GFR ( Amer) Est GFR (Non-Af Amer) BUN/Creatinine Ratio Glucose Lactic Acid 3.5 H* 3.6 H* Calcium Total Bilirubin AST ALT Alkaline Phosphatase Total Creatine Kinase Troponin I 2.42 H* Total Protein Albumin Globulin Albumin/Globulin Ratio Triglycerides Cholesterol LDL Cholesterol HDL Cholesterol TSH Urine Color Urine Appearance Urine pH Ur Specific [place] Urine Protein Urine Ketones Urine Blood Urine Nitrate Urine Bilirubin Urine Urobilinogen Ur Leukocyte Esterase Urine WBC (Auto) Urine RBC (Auto) Ur Squamous Epith Cells Urine Bacteria Hyaline Casts Granular Casts Urine Glucose Serum Alcohol a/P 78 yo with fall, elevated troponins, abnormal ECG, severe . Additionally probable menigioma, head aches. For cardiac work up plan on cath in AM if CK/BUN/Cr all moving in the right direction. The patient is requesting [facility] for TAVR, I was unable to contact them today to discuss if ANITRA/CT scan could be done here, how to expedite referral, if stenting indicated their preference wrt antiplatelet agents/coordination of cardiac care.
[2019-02-09 17:45] LABS: ABS Basophils 0.1 10^3/ul (0-0.2); ABS Eosinophils 0.1 10^3/ul (0-0.6); ABS Lymphocytes 1.3 10^3/ul (1.0-4.8); ABS Neutrophils 17.8 10^3/ul (1.5-7.7); Eosinophil % 0.3 %; Hematocrit 39 % (35-47); Hemoglobin 13.2 g/dL (12.0-16.0); Lymphocyte % 6.3 %; Mean Corpuscular HGB Conc 34 g/dL (31-36); Mean Corpuscular Hemoglobin 29 pg (27-31); Mean Corpuscular Volume 85 fL (80-97); Mean Platelet Volume 8.3 fL (7.4-10.4); Platelet Count 173 10^3/uL (150-450); Red Blood Count 4.61 10^6 /uL (3.70-4.87); Red Cell Distribution Width 14 % (10-15); White Blood Count 20.2 10^3/uL (3.5-10.8)
[2019-02-09 18:01] LABS: BUN/Creatinine Ratio 35.4 (8-20); Calcium 8.3 mg/dL (8.6-10.3); EGFR African American 84.7 (>60); Potassium 3.4 mmol/L (3.5-5.0)
[2019-02-09 18:14] LABS: Troponin I 1.8 ng/mL (<0.04)
--- NOTE | 2019-02-09 18:35 | CONS ---
INTERVENTIONAL CARDIOLOGY CONSULT NOTE: DATE OF CONSULT: 02/09/19 PRIMARY CARE PHYSICIAN: None. SOLUTIONS ANALYST: Dr. Shayy Yusuf. HISTORY OF PRESENT ILLNESS: An 78-year-old woman who was admitted to the hospital after a fall. Cardiology was consulted because of elevated troponins and abnormal EKG. See that consultation for details. I was consulted because of the diagnosis of a qhy-AB-jwbsdcaai infarct and for consideration of invasive evaluation of the same as well as her significant aortic stenosis. She denies any prior cardiac history. Apparently, she has a history of hemiplegic migraines with recurring falls, although the family thinks she does have chronic left-sided weakness due to previous fractures. In any case, she has never had any what she perceives as exertional dyspnea or chest pain. She goes shopping with her daughter, is careful about balance, but has never had any of these symptoms with activity. She has never had near syncope or syncope. Her recent fall was precipitated by tripping. She categorically denies any loss of consciousness. PAST MEDICAL HISTORY: Meningioma, history of hypertension per history, history of migraines. MEDICATIONS: Pre-Hospital Medications: Claritin. Hospital Medications: Zithromax, subcu heparin, IV saline, ceftriaxone. ALLERGIES: To medication, reportedly ASPIRIN, which causes dizziness and tingling. FAMILY HISTORY: Positive for premature coronary artery disease with a sister dying of an infarct at 58. SOCIAL HISTORY: She lives alone at home. She is a nonsmoker. PHYSICAL EXAM: She is an elderly woman with bruises on her face. She is articulate. Her BP 138/53, heart rate in the 90s, occasional ectopy. Her lungs without rales or wheezes. JVP not elevated. Carotid upstrokes, probably somewhat delayed. HEENT: Notable only for bruising. Cardiac Exam: She has a fairly typical calcific murmur which peaks late, increases post extrasystole. I do not hear any diastolic murmur or gallop. The abdomen is soft and nontender without bruit. I cannot feel the aorta. Femoral pulses are palpable. Radials are palpable. She has faintly palpable pedal pulses. She has no cyanosis, clubbing, or edema. DIAGNOSTIC STUDIES/LAB DATA: EKG shows sinus rhythm with occasional PAC, T- wave inversion in I; aVL; V1 through V6. We do not have any old tracings. Her CPK is 3000, repeat pending. Troponin initially 4.43, which was peak. Her initial potassium was 3.4. Hemoglobin 13.7, hematocrit 41, her platelet count is normal. Lactate elevated at 3.5. Random blood sugar 171. Cholesterol 151, triglycerides 79, LDL 84, HDL 51.7. Echo reported severe aortic stenosis with mfcz-kl-frimfzqh mitral regurgitation , LVEF of 40% to 45% with wall motion abnormalities involving the anterior, lateral and posterior wright. Aortic valve area is calculated from 0.69 to 0.78. IMPRESSION AND PLAN: Afl-IJ-rdktpcwfj infarct. This occurred in the setting of a fall, which by history appears mechanical. She denies any symptoms referable to her aortic valve. This seems to be corroborated by the family. She also has concomitant severe aortic stenosis by noninvasive testing. She has left ventricular dysfunction. We discussed at length the evaluation and management of tlp-ZC-wzoafxljh infarct as well as of severe aortic stenosis. We are waiting to discuss the case with [facility] T[facility] team. She is tentatively scheduled for cath for the morning as long as we formalize a plan with respect to with a total care plan. Thanks for the consultation. I will follow as needed. [id number]/[facility] #: [id number] DONNA
--- NOTE | 2019-02-09 22:07 | PN ---
Progress Note - Progress Note Date of Service: 02/09/19 Note: Patient seen and examined. Please see details at [facility]'s consultation note. Patient is 78 yo left handed female who was reported to have sustained a fall. Patient has CT findings c/w Rt F/P large calcified lesion. MRI findings support the diagnosis of meningioma. Patient is AAOx3 JAMIA, CN II-XII grossly intact Motor 5/5 rt side 4/5 left side Sensory grossly intact to light touch No TTP C/T/L spine. FROM C spine. No complains of neck or back pain. Discussed with patient regarding imaging findings and possible surgical intervention. Patient will be transferred to [place] for TAVR. Will be happy to see the patient when she returns and schedule surgical intervention when medically stable. Obtain T/L imaging prior to transfer. Appreciate IM, Cardiology care. Andrea Flores MD
--- NOTE | 2019-02-09 22:43 | CONS ---
CONSULTATION REPORT: DATE OF CONSULT: 02/09/19 HISTORY OF PRESENT ILLNESS: Ms. Noriega is an 78-year-old female that was found down in her home by medical response team after a mechanical fall. The patient reports tripping over some in her bathroom, which caused her to have a fall. She denies hitting her head or losing consciousness. Apparently, she denies any headache, nausea, vomiting, recent changes in visualizations or visual disturbance including blurred vision or double vision. She reports chronic left upper extremity or lower extremity weakness prior to her fall. It has been unchanged since the fall. She denied any issues with loss of control of bladder or bowel. She was brought in by the emergency response team to [facility] and had a CT scan of her head and of her cervical spine. Neurosurgery team was consulted to evaluate the patient. There was a 6-cm meningioma on the right parietal side of her brain and was found on her head CT , and Neurosurgery was contacted to evaluate the patient for this reason. The patient currently denies any pain in her lower back, but denies pain in her right hip and also denies pain in her mid back as well. She denies any loss of sensation in extremities as well as in her genital regions, and also denies issues with her bladder and bowel incontinence. PAST MEDICAL HISTORY: Significant for osteoarthritis, hypertension, aortic valve murmur. PAST SURGICAL HISTORY: No surgical history. HOME MEDICATIONS: Include: 1. Loratadine. 2. Claritin 10 mg. SOCIAL HISTORY: Denies tobacco use. Denies alcohol use. Denies substance abuse. PHYSICAL EXAM: Vital Signs: Temperature is 98.0, pulse rate 98, respiratory rate 18, O2 saturation 94% on room air, blood pressure is 138/53. The patient is lying upright in bed, comfortable, in no acute distress. Alert and oriented x3. Cranial nerves II through XII are grossly intact without deficit. EOMs intact. No deficits on visual merrill. Upper extremity motor strength, motor strength on the right side is 5/5 with elbow flexion and extension, 4- on the left side with elbow flexion and extension also with handgrip strength as well. Lower extremity motor strength 4/5 with hip flexion and extension on the left, 4 +/5 on the right with hip flexion and extension. Plantar flexion, decreased motor strength of plantar flexion on the left is 4/5, 5/5 on the right. EHL is 5/5 bilaterally. Appears to have significant edema in the lower extremities as well. diffuse bruising throughout. DIAGNOSTIC STUDIES/LAB DATA: Imaging: Brain CT completed, 02/08/19, shows a right parietal possible meningioma right next to falx cerebri, possibly originated of the falx. No midline shift, no acute bleeding noted. No mass effect. MRI brain completed, 02/08/19, with and without contrast again shows a right parietal parafalcine meningioma with the measurements 5.3 x 4.5 x 5.0 cm with mild vasogenic edema with midline shift. CT scan of the cervical spine, no acute injury noted, dukpkbzi-mn-gcrdpo degenerative changes seen at this time. ASSESSMENT AND PLAN: An 78-year-old female, status post mechanical fall, found down in home, and an incidental finding of a meningioma of the right parietal section of the brain. The patient is neurologically intact with no focal deficits. PLAN: The patient has a comorbidity, apparently has been worked up by Cardiology for valvular replacement. At this time, I recommend to stabilize the patient's acute needs. We will get a thoracic spine and CT scan as well as a lumbar spine CT scan and we will follow up with imaging. Once the patient is stabilized by Medicine, we will continue to workup the meningioma at that time. Thank you for allowing me to be a part of the patient's care. [id number]/[facility] #: [id number] DONNA
[2019-02-10 05:26] LABS: ABS Eosinophils 0.1 10^3/ul (0-0.6); ABS Lymphocytes 0.9 10^3/ul (1.0-4.8); ABS Monocytes 0.8 10^3/ul (0-0.8); ABS Neutrophils 13.6 10^3/ul (1.5-7.7); Eosinophil % 0.8 %; Hematocrit 37 % (35-47); Hemoglobin 12.2 g/dL (12.0-16.0); Lymphocyte % 5.9 %; Mean Corpuscular HGB Conc 33 g/dL (31-36); Mean Corpuscular Hemoglobin 28 pg (27-31); Mean Corpuscular Volume 85 fL (80-97); Platelet Count 164 10^3/uL (150-450); Red Blood Count 4.31 10^6 /uL (3.70-4.87); Red Cell Distribution Width 14 % (10-15); White Blood Count 15.4 10^3/uL (3.5-10.8)
[2019-02-10 05:36] LABS: BUN/Creatinine Ratio 31.8 (8-20); Calcium 8.5 mg/dL (8.6-10.3); EGFR African American 104.3 (>60); EGFR Non-African American 86.2 (>60); Potassium 3.5 mmol/L (3.5-5.0)
[2019-02-10 05:46] LABS: Troponin I 1.41 ng/mL (<0.04)
--- NOTE | 2019-02-10 06:41 | PN ---
Subjective Date of Service: 02/10/19 Interval History: HD 3 on 02/10 78 Y/o F with history of Migraine presented after fall and was found lying down on floor with weakness. Found to have multiple bruises all over the body, leucocytosis, abnormal urinalysis, and mass on her right parietal brain possibly Meningioma. Overnight- No acute events Vitals stable lactic acid normal, CK decreasing, trop downtrending WBC dec than yesterday Objective Active Medications: Acetaminophen (Tylenol Tab*) 650 mg PO Q6H PRN PRN Reason: PAIN - MILD Last Admin: 02/09/19 19:44 Dose: 650 mg Azithromycin 250 mg/ Sodium (Chloride) 250 mls @ 250 mls/hr IVPB Q24H [facility] Last Admin: 02/09/19 10:40 Dose: 250 mls/hr Ceftriaxone Sodium 1 gm/ (Sodium Chloride) 50 mls @ 100 mls/hr IVPB Q24H [facility] Last Admin: 02/09/19 10:39 Dose: 100 mls/hr Sodium Chloride (Ns 0.9% 1000 Ml) 1,000 mls @ 100 mls/hr IV .per rate [facility] Vital Signs - 8 hr 02/10/19 02/10/19 00:39 03:47 Temperature 98.2 F 98.3 F Pulse Rate 106 97 Respiratory 20 16 Rate Blood Pressure 135/67 147/92 (mmHg) O2 Sat by Pulse 92 93 Oximetry Oxygen Devices in Use Now: None Result Diagrams: 02/10/19 04:41 02/10/19 04:41 Assess/Plan/Problems-Billing Assessment: 78 Y/o F with history of Migraine presented after fall and was found lying down on floor with weakness. Found to have multiple bruises all over the body, leucocytosis, elevated creatinine kinase and lactic acid and mass on her right parafalcine brain possibly Meningioma adn NSTEMI. - Patient Problems (1) Fall Current Visit: Yes Status: Acute Comment: -Pt was falling more often for last 1 year; with more shuffling gait. - She tripped 2 days ago and fell down and hit her face and was on floor for 24 hours -She denies chest pain, palpitation and light headedness. - could be multifactorial- weakness from brain mass, syncope or just mechanical fall -No fracture on Xray -Ct/MRI shows right parafalcine brain mass with midline shift possibly meningioma -PT ordered (2) NSTEMI (non-ST elevated myocardial infarction) Current Visit: Yes Status: Acute Code(s): I21.4 - NON-ST ELEVATION (NSTEMI) MYOCARDIAL INFARCTION SNOMED Code(s): 01570171 Comment: -Asymptomatic -has elevated troponin with ECG chowing T inversion on anterior leads -Echo shows focal wall motion abnormalities with EF of 40-45% with severe . -Cardio following -received loading of plavix; denied aspirin -no statin because of elevated CK - Cardiac cath tomorrow or on thursday. -trend troponin (3) Sepsis Current Visit: Yes Status: Acute Comment: -meet SIRS criteria with elevted WBC and tachy; suspected source urine; although denies symptom -elevated lactic acid- pt doesnot look septic- no e/o hypoperfusion -Abnormal urinalysis -CXR shows mild infiltrates on right middle lobe. -received bolus IVF; now on maintenance fluid- her lactic acidodsis should be decreasing by now but is still high; suspect Type B lactic acidosis - On ceftriaxone and azithro which will cover both UTI and Pneumonia -pending urine culture and blood culture (4) Aortic valve stenosis Current Visit: Yes Status: Acute Code(s): I35.0 - NONRHEUMATIC AORTIC (VALVE ) STENOSIS SNOMED Code(s): 25213860 Comment: -severe AV stenosis -Echo done -will need TAVR or open surgery -Cardio following (5) Rhabdomyolysis Current Visit: Yes Status: Acute Code(s): M62.82 - RHABDOMYOLYSIS SNOMED Code(s): 750040137 Comment: - on floor for 24 hours -CK of 2977 -Creatinine is normal. -On IVF -we will recheck CK (6) Meningioma Current Visit: Yes Status: Acute Code(s): D32.9 - BENIGN NEOPLASM OF MENINGES, UNSPECIFIED SNOMED Code(s): 319777009 Comment: -CT/MRI shows mass on right parafalcine region with midline shift of 5 mm possibly meningioma - Neurosurgery consulted - we will see patient tomorrow. (7) DVT prophylaxis Current Visit: Yes Status: Acute Code(s): Z29.9 - ENCOUNTER FOR PROPHYLACTIC MEASURES, UNSPECIFIED SNOMED Code(s): 363786563 Comment: -On heparin (8) Full code status Current Visit: Yes Status: Acute Code(s): Z78.9 - OTHER SPECIFIED HEALTH STATUS SNOMED Code(s): 555538508 Status and Disposition: Inpatient Cardio and neurosurgery following Attestation Attending/Supervising Physician Comment: Attending Addendum:agree with resident assemsent, cath showing triple vessle dz , in need of transfer. Long family discussion electing for [facility]
[2019-02-10] MEDS ORDERED: NS 0.9% 1000 ML** 1,000 ML IV SCH ×2 (07:00→10:00)
[2019-02-10] MEDS ORDERED: Heparin 2 UNITS/ML IVPREMIX* 2,000 ML IV ONE (08:12)
[2019-02-10] MEDS ORDERED: Heparin(*) 1000 UNIT/ML 10 ML VIAL CATH LAB IV ONE (08:12)
[2019-02-10] MEDS ORDERED: fentaNYL* 50 MCG/ML 2 ML VIAL (100 MCG VIAL) ONE (08:12)
[2019-02-10] MEDS ORDERED: VERAPAMIL 2.5 MG/ML 2 ML VIAL ** 5 mg/2 ml ONE (08:12)
[2019-02-10] MEDS ORDERED: Midazolam* 1 MG/ML 5 ML VIAL (5 MG) ONE (08:12)
[2019-02-10] MEDS ORDERED: nitroGLYCERIN DRIP* 25,000 MCG/250 ML BTL ONE (08:13)
[2019-02-10] MEDS ORDERED: Iohexol 350 (CONTRAST) 200 ML MDV IV ONE (08:13)
[2019-02-10] MEDS ORDERED: Lidocaine 1% INJ* 10 MG/ML 30 ML SDV ONE (08:13)
[2019-02-10] MEDS: cefTRIAXone(*) 1 GM in NS 0.9% 50 ML* 50 ML IVPB SCH (10:23)
[2019-02-10] MEDS ORDERED: Vancomycin Trough Check NOTE FOLLOW UP ONE (10:30)
[2019-02-10] MEDS ORDERED: Acetaminophen TAB* 325 MG ONE (10:35)
[2019-02-10] MEDS: Acetaminophen TAB* 325 MG PO PRN ×2 (10:43→16:35)
[2019-02-10] MEDS: Azithromycin IV(*) 250 MG in NS 0.9% 250 ML* 250 ML IVPB SCH (11:08)
[2019-02-10] MEDS ORDERED: Clopidogrel TAB* 75 MG PO SCH (13:00)
[2019-02-10] MEDS ORDERED: Metoprolol Tartrate TAB* 25 MG PO SCH (13:00)
--- NOTE | 2019-02-10 15:32 | PN ---
Hospitalist Progress Note Date of Service: 02/10/19 Long family discussion with daughters, granddaughter present as well in helping them understand complex medical decisions ahead Cami and her family now understand she has the following problems 1) 5.6 cm menigioma in R parietal with shift and vasogenic edema with associated weakness on L side-they understand this is possibly fast growing and could cause seizures and complications if not addressed. They also understand that her heart is the priority in this case 2) Severe (unclear if sx, but possibly given fall) and triple vessel coronary artery disease. The overwhelming recommendation from cardiology Dr. Yusuf, Dr. Lang, Dr. Zhao whom I spoke with recommend CABG evaluation with possible SAVR at outside facility such as [facility]. CT surgery would need to be contacted. They understand that a less efficacious and more timely evaluation would include stenting of the culprit lesion and then evaluation for TAVR, she would likely need to go to [facility] instead of be d/c home given her state. She understands that the surgery is what is recommended but that it would entail sig amount of rehab and that she would then need to be evaluated from a neurosurgical standpoint. We also presented the option of doing nothing and choosing a more palliative approach to this given her age and magnamity of medical issues. Cami is very clear with her family and us today after 90 minutes of family meeting. She would like to proceed, without haste, to CABG evaluation. I will share this news with cardiology as well as transfer center to initiate this process.
[2019-02-10] MEDS ORDERED: Atorvastatin* 80 MG TAB PO SCH (17:00)
--- NOTE | 2019-02-10 17:18 | CATH ---
CC: Dr. Yusuf * CATH REPORT: DATE OF PROCEDURE: 02/10/19 - ROOM #[id number] PRIMARY CARE PHYSICIAN: None. ANTIQUE JEWELRY REPAIRER: Dr. Yusuf. PROCEDURE: Right radial artery access with ultrasound assistance, bilateral selective coronary cineangiography. HISTORY: An 78-year-old woman with severe aortic stenosis by noninvasive testing, admitted with a fall with subsequent documentation of ilw-FP-pqanjgibv infarct and extensive anterolateral T-wave inversion. She has a history of ASPIRIN allergy which is questionable, apparently resulted in "fogginess." Her fall was apparently mechanical, she denies any history of prior heart failure symptoms, angina or near syncope/syncope. She is referred for coronary angiography as part of her workup for her non-ST- elevation infarct and severe aortic stenosis. After discussion with [facility] cardiac team, plan is for diagnostic coronary angiography and low-risk percutaneous revascularization if required. PROCEDURE ACCESS: Right radial artery sheath 6F slender with ultrasound assistance. MEDICATIONS: 1. Subcu lidocaine. 2. IV Versed. 3. IV fentanyl. 4. Heparin 3000 units. 5. Verapamil 3 mg. 6. Nitroglycerin 300 mcg IA. DIAGNOSTIC CATHETER: 5F TIG4. HEMODYNAMICS: Initial AO 123/71. Final BP 139/84. ANGIOGRAPHY: There is heavy calcification of the aortic leaflets which have decreased mobility as well as calcification in the left anterior descending and diagonal branch, and RCA. Left main: The left main is normal in size and length, has minor luminal irregularity, no significant stenosis. LAD: The LAD is heavily calcified, has less than 30% stenosis before the first septal, then supplies a moderate diagonal branch at the first septal, it has 30 % to 40% ostial stenosis, then reconstitutes, then has a 90% stenosis which is relatively short, the diagonal then reconstitutes, and then within a few millimeters bifurcates. It is stentable. The LAD continuation has luminal irregularity to the mid LAD where there is a 60% fairly short stenosis with normal distal flow. The LAD supplies the inferoapical segment. Circumflex: The circumflex is large, not dominant, has a proximal 75% stenosis with calcification, distally supplies a moderate and a large marginal branch. RCA: The RCA is moderate, dominant, with an extensive distribution, it has a tubular long 50% to 60% stenosis before the acute margin. There is a 20% to 30 % stenosis before the origin of the acute marginal branch, which supplies a tvlzx-nx-dkmkglul PDA. Distal RCA ends with a large posterolateral without stenosis. CONCLUSION: Three-vessel disease with likely culprit diagonal branch. We will discuss with her surgical aortic valve replacement with CABG versus selective PCI revascularization with subsequent possible TAVR. Presently, the patient and the family are having extensive discussions regarding their wishes. Given her multivessel disease and severe aortic stenosis, I do not feel she is an appropriate candidate for multilesion stenting in a freestanding manager labor delivery. [id number]/[facility] #: [id number] DONNA
[2019-02-10 19:56] VITALS: BP 147/89
--- NOTE | 2019-02-10 21:37 | PN ---
Progress Note - Progress Note Date of Service: 02/10/19 Note: No events ON. Exam stable. Discussed with patient's daughter at the bedside. Patient's daughter would like patient to be treated in [place] for her Brain tumor. Will follow patient's family wishes. Patient scheduled to be transferred to [place] for TAVR in am. Will be always available if needed. Appreciate IM, Cardiology care. Andrea Flores MD
--- NOTE | 2019-02-11 00:29 | DS ---
TRANSFER SUMMARY: DATE OF ADMISSION: 02/08/19 DATE OF TRANSFER: 02/10/19 DISPOSITION AT TIME OF TRANSFER: Stable to be transferred to a higher level of care, at this time [facility] PRIMARY CARE PROVIDER: None. The patient will need primary care on discharge. PRIMARY DIAGNOSES: 1. Severe aortic stenosis. 2. Triple vessel coronary artery disease. 3. New right parietal meningioma measuring 5.3 x 4.5 x 5.2 cm with mild vasogenic edema and midline shift to the left measuring 5 mm with resultant left -sided 4/5 weakness in both left upper and left lower extremity. 4. Possible mild pneumonia. SECONDARY DIAGNOSIS: History of migraines, but otherwise formally healthy female with no medications. MEDICATIONS AT TIME OF DISCHARGE: 1. Aspirin. 2. Clopidogrel 75 mg p.o. daily. 3. Ceftriaxone 1 g q. 24 hours, last dose 10 a.m. on 02/10/19. 4. Azithromycin 250 mg, last dose on 02/10/19 at 11 a.m. 5. Atorvastatin 80 mg p.o. daily. All medications were added during this hospitalization. ALLERGIES: The patient reports she has an allergy to ASPIRIN. CONSULTANTS DURING THIS HOSPITALIZATION: Included neurosurgery and cardiology. HISTORY OF PRESENT ILLNESS AND HOSPITAL COURSE: This is an 78-year-old female with no known past medical history other than migraines, which she reported were hemiplegic, although she states she is never formally diagnosed by Neurology who presented after being found down for 24 hours by her family after a mechanical fall. The patient is domiciled by herself and completes all ADLs and IADLs on her own and was in her usual state of health until 2 days prior to admission. The patient reports that she felt dizzy and fell. She does not have a clear memory of the fall and it is possible that there was a syncopal event. Nonetheless, when she came to, she was on the ground and because of her left-sided weakness, she was unable to get up and support herself. She did fall on her face and her left knee as well and was on the ground for approximately 24 hours before her family was able to find her. When she presented to the emergency room, her vital signs were stable. Her labs were notable for a leukocytosis to 23, stable H and H, normal platelets. A BMP was notable for normal creatinine, but elevated CK to 2977 and a troponin elevated at 3.96 as well as elevated lactic acid to 3.2. Imaging was done in the emergency room including a chest x-ray, a femur, hand, hip, and pelvis x- rays, which showed no fracture of long bones. A maxillofacial CT was done, which showed no fracture of facial bones. A cervical spine CT showed no fracture of cervical spine and a brain CT was done that showed a large right parietal 6 cm calcified mass that could represent a meningioma. An MRI was done that confirmed right parietal meningioma with specifications as per below. An EKG was done that showed nonspecific T wave inversions and with concordant trops. Cardiology was contacted as well. The patient was chest pain free at that time. Because of her numerous problems, the patient hospitalist team was asked to evaluate the patient and she was admitted to the hospital with the following problems with plan as follows: 1. Elevated troponin, T wave inversions in the setting of possible syncopal event. The patient was noted to have a significant murmur on physical exam in the emergency room and an echocardiogram was done on 02/09/19 that showed severe aortic stenosis with a mean systolic gradient of 30 mm in the valve area by the peak velocity of 0.78 cm. The peak systolic velocity is 3.2 m/sec. The left ventricular systolic function is mild to moderately reduced with an ejection fraction of 40% to 45% with focal wall motion abnormalities showing hypokinesis in the mid lateral and posterior wright. Anterior wall appears hypokinetic. Otherwise, the mitral annulus was calcified. Mild to moderate regurgitation in the right side of the heart. She has mild regurgitation in tricuspid valves and pulmonic valve normal with systolic pressure moderately increased in the pulmonary artery, estimated to be at 46 mm. The right ventricle is normal. Given her elevated troponins, nonspecific T-wave inversions, and regional wall motion abnormalities, the corporate law specialist decided to pursue cardiac catheterization on 02/10/19, which noted severe triple vessel disease that was not amenable to stenting and the overall recommendation from cardiology team was to have the patient evaluated for CABG in the setting of severe aortic stenosis and triple vessel disease. 2. New incidental right parietal mass with midline shift and left-sided weakness. Again, the patient is a poor historian and the subacute nature of this , although she has noted some left-sided weakness, but it has been months in nature. Neurosurgery evaluated the patient on 02/09/19 and noted lower motor strength and upper motor strength weakness 4/5, but no other focal deficits. The neurosurgical evaluation felt that this tumor should ultimately be operated on, but that her pressing cardiac needs took precedence and deferred further workup of meningioma until stabilization from a cardiac standpoint. 3. Mild rhabdomyolysis, traumatic with no associated acute injury. The patient was placed on fluids, which she tolerated well and creatine kinase cleared. 4. Possible pneumonia with leukocytosis. The patient was covered for community - acquired pneumonia given right-sided mild infiltrate and leukocytosis. Her T- max during this hospitalization was 100.2. She remained mildly tachycardiac from 90 to 105. She is covered on ceftriaxone and azithromycin, on day 2/5 on day of transfer. 5. History of migraines. The patient is not on any medications. She denies any current migraine. She was unsure if she had a migraine just before she had her fall. LABS AND STUDIES DURING THIS HOSPITALIZATION: Will be included with this transfer summary: On 02/10/19, CBC shows white blood cell count of 15.4, hemoglobin of 12, hematocrit of 37, and platelets of 164. BMP shows sodium 139, potassium 3.5, chloride 108, carbon dioxide 25, anion gap 6, BUN 21, creatinine 0.66, and glucose 119. Lactic acid 1.1. Troponin 1.41 and peak troponin was 4.43 on . Other labs are included. Total CK on 02/10/19 was 1202. Imaging discs as well as impressions are included. On day of transfer, the patient is tolerating diet. Her vital signs are stable. PHYSICAL EXAMINATION: Her physical exam is notable for well-appearing woman, in no acute distress, lying in bed. Her head exam is notable for significant bruising over most of her face, but pupils equal and reactive. Moist mucous membranes. Neck is supple with no supraclavicular or cervical lymphadenopathy. Lungs are clear to auscultation bilaterally. Cardiac exam reveals 5/6 systolic ejection murmur heard over entire precordium with mildly elevated rate, normal rhythm. Belly is soft, nontender, and nondistended. Extremities are warm and well perfused. She has mild nonpitting edema and significant bruising particularly on left knee. Her neuro exam is a woman a and O x3, pleasant and conversant. She has left upper extremity weakness, 4/5 and left lower extremity weakness 4/5, but otherwise neurologically intact. At the time of transfer after consultation with Cardiology and Neurosurgery, given her triple vessel disease and severe aortic stenosis, Cardiology felt that she was most appropriate to be transferred to a higher level of care where both Cardiothoracic Surgery as well as neurosurgery are available and the decision to transfer was discussed with family. Even with long goals of care discussion, giving her all the options including palliative, they elected for transfer for CABG evaluation, preferably with a team that has Neurosurgery involvement in the event they wish to proceed with their outpatient followup at this hospital. Also, goals of care discussion was had regarding her code status , which at this time is full. ITEMS TO FOLLOW UP ON STATUS POST DISCHARGE: 1. Aortic stenosis with triple vessel coronary artery disease. The patient needs CT Surgery evaluation and she has been accepted for transfer by Dr. Madden on cardiac stepdown unit. 2. Parietal tumor consistent with meningioma. The patient may need neurosurgical evaluation to determine if there is any risk in upcoming possible open heart surgery. 3. Community-acquired pneumonia versus aspiration pneumonia while being found down. The patient is on ceftriaxone, azithromycin with improving white blood cell count. She is on day 3 of antibiotics out of 5 and these can discontinued on 02/12/19 or as clinically seems fit. 4. Rhabdomyolysis. This is improving significantly. Creatine kinase is trending down. It is dramatic in nature and she has no JOSE. 5. Coronary artery disease. The patient is on clopidogrel alone because she reports that she has allergy to aspirin. She is also optimized to atorvastatin and metoprolol 25 mg p.o. q.8 hours, which can be continued. 6. Sepsis. The patient presumed meeting sepsis criteria on admission, though these criteria have resolved and lactate has cleared. This is presumed to be secondary to a pulmonary source, which has resolved by hospital day 1. 7. DVT prophylaxis: The patient is placed on heparin subcu. Can be continued at the discretion of primary team at accepting hospital. 8. Diet: The patient is placed on heart healthy diet. 9. PT and OT has recommended the patient should be ambulatory. 10. Code status is full as per above. TIME SPENT: 75 minutes was spent on the planning of this discharge with over half of that was spent directly at the bedside of the patient and providing direct patient care. This transfer summary is a distillation of a number of complex events and complications that happened over the course of 3-day hospitalization and if there are any questions about the care of this patient, please do not hesitate to reach out and contact me directly, my cellphone is [phone]. [id number]/[facility] #: [id number] MTDD
== END 2019-02-10 20:00 | disposition short-term general hospital (02) | DRG 871 ==
LOC: ED 18:45 → MEDTELE 23:08
PROVIDERS: ADMIT Student in an Organized Health Care Education/Training Program; ATTEND Internal Medicine
PROC: B2111ZZ Fluoroscopy of Multiple Coronary Arteries using Low Osmolar Contrast (ICD-10-PCS; principal; 2019-02-10 08:00)
DX: A41.9 Sepsis, unspecified organism (principal); G93.6 Cerebral edema; J18.9 Pneumonia, unspecified organism; I21.4 Non-ST elevation (NSTEMI) myocardial infarction; I67.89 Other cerebrovascular disease; G81.94 Hemiplegia, unspecified affecting left nondominant side; E87.2 Acidosis; G43.409 Hemiplegic migraine, not intractable, without status migrainosus; W19.XXXA Unspecified fall, initial encounter; R29.6 Repeated falls; D32.0 Benign neoplasm of cerebral meninges; R79.89 Other specified abnormal findings of blood chemistry; I25.10 Atherosclerotic heart disease of native coronary artery without angina pectoris; R55 Syncope and collapse; I08.3 Combined rheumatic disorders of mitral, aortic and tricuspid valves; T79.6XXA Traumatic ischemia of muscle, initial encounter; I10 Essential (primary) hypertension; S00.81XA Abrasion of other part of head, initial encounter; M19.90 Unspecified osteoarthritis, unspecified site; Z28.21 Immunization not carried out because of patient refusal; Y92.009 Unspecified place in unspecified non-institutional (private) residence as the place of occurrence of the external cause; Z79.82 Long term (current) use of aspirin; Z88.6 Allergy status to analgesic agent; Z88.2 Allergy status to sulfonamides
CPT/HCPCS: 36415; 70450; 70486; 70553; 71045; 72125; 80048; 80053; 80061; 80202; 80320; 81003; 81015; 82550; 83605; 83880; 84443; 84484; 85025; 85610; 87040; 87086; 93005; 93306; 93458; 99156; 99284; A9270-GY; A9579; G0480; G8978-GP-CN; G8979-GP-CK; J0456; J0696; J1644; J2250; J2543; J3010; J3370